=== PATIENT | male | born 1990 | race Caucasian/White ===

== ENCOUNTER → 2017-06-12 | Outpatient (CLI) | payer SELFPAY | LOC: BMCIMAGING 17:45 | PROVIDERS: ATTEND Family Medicine | DX: S52.335A Nondisplaced oblique fracture of shaft of left radius, initial encounter for closed fracture (principal) ==

== ENCOUNTER → 2017-06-19 | Outpatient (CLI) | payer OTHER | LOC: BMCIMAGING 10:06 | PROVIDERS: ATTEND Orthopaedic Surgery Hand Surgery | DX: Z09 Encounter for follow-up examination after completed treatment for conditions other than malignant neoplasm (principal); S52.515A Nondisplaced fracture of left radial styloid process, initial encounter for closed fracture ==